=== PATIENT | female | born 1955 | race Caucasian/White ===

== ENCOUNTER 2019-01-18 16:07 | Emergency (ER) | payer OTHER ==
[~2019-01-18] VITALS: Ht 162.6 cm; Wt 52.2 kg
[2019-01-18 16:07] VITALS: BP 150/82
--- NOTE | 2019-01-18 16:10 | NUR ---
ED Nurse Note: Patient brought in by [id number] from [place] due to tripped and fell injury. patient reports she hit her head and sustained a laceraion on left side of head. patient denies taking any medication. patient reports 7/10 pain on the forehead. patient is alert awake x4 ambulatory. breathing unlabored and even
[2019-01-18] MEDS ORDERED: Tetanus/Diptheria/Pertussis IM ONE (16:30)
--- NOTE | 2019-01-18 16:30 | NUR ---
ED Nurse Note: patient taken to CT head
--- NOTE | 2019-01-18 16:59 | Diagnostic Imaging Report ---
Indications: Head pain, trip and fall, laceration to left side of head, 7 out of 10 pain on the forehead Technique: Spiral acquisitions obtained through the brain. Angled axial and coronal 5 x 5 mm slices were reconstructed. Total dose length product 1369.02 mGycm. CTDI vol(s) 70.38 mGy. Dose reduction achieved using automated exposure control Comparison: None. Findings: No acute intracranial hemorrhage or edema. No mass effect or midline shift. Normal jackson-white differentiation. Normal size ventricles and extra axial CSF spaces. Visualized orbits and sinuses are unremarkable. The mastoids are clear. Impression: Negative The CT scanner at [facility] is accredited by the [employer] and the scans are performed using protocols designed to limit radiation exposure to as low as reasonably achievable to attain images of sufficient resolution adequate for diagnostic evaluation.
--- NOTE | 2019-01-18 17:06 | NUR ---
ED Nurse Note: patient refused tdap shot. information sheet regarding TDAP was provided to the patient, patient reports reading the information sheet carefully, patient refused to take TDAP injection. Dr. Mcgregor notified.
--- NOTE | 2019-01-18 17:16 | Emergency Room Report ---
History of Present Illness General Chief Complaint: Multiple Trauma/Fall Source: Patient Present Illness HPI 63-year-old female, presents with left forehead laceration, after falling mechanical, patient tripped on the curb, no LOC, no neuro deficits, patient denies any preceding symptoms, no chest pain, no shortness of breath, no abdominal pain, patient presents with sharp achy pain of the forehead no aggravating or alleviating factors, severity is mild Allergies: Coded Allergies: No Known Allergies (Unverified , 01/18/19) Patient History Past Medical History: see triage record Reviewed Nursing Documentation: PMH: Agreed; PSxH: Agreed Nursing Documentation-PMH Past Medical History: No Stated History Review of Systems All Other Systems: negative except mentioned in HPI Physical Exam Vital Signs Date Time Temp Pulse Resp B/P (MAP) Pulse Ox O2 Delivery O2 Flow Rate FiO2 01/18/19 16:06 97.0 82 16 150/82 (104) 100 Room Air Sp02 EP Interpretation: reviewed, normal General Appearance: well appearing, no apparent distress, alert Head: normocephalic, other - Left forehead: 2 cm superficial laceration Eyes: bilateral eye PERRL, bilateral eye EOMI ENT: uvula midline, moist mucus membranes Neck: supple, thyroid normal, supple/symm/no masses Respiratory: lungs clear, no respiratory distress, no retraction, no accessory muscle use Cardiovascular #1: normal peripheral pulses, regular rate, rhythm, no edema, no gallop, no murmur Gastrointestinal: non tender, soft, no guarding, no rebound Musculoskeletal: normal inspection Neurologic: alert, oriented x3 Psychiatric: mood/affect normal Skin: no rash, warm/dry Procedures Laceration/Wound Repair Laceration/Wound Repair : Consent: Verbal Wound Location: head Wound's Depth, Shape: superficial Wound Length (cm): 2 Wound Explored: clean Irrigated w/ Saline (ccs): 100 Betadine Prep?: Yes Wound Debrided: None Wound Repaired With: Dermabond Medical Decision Making Diagnostic Impression: Primary Impression: Fall Additional Impression: Laceration of head ER Course 63-year-old female presents with laceration of the left forehead, after mechanical fall repaired with Dermabond, CT brain negative for acute processes, disposition home with return precautions Patient refused TDAP aware of risks and benefits CT/MRI/US Diagnostic Results CT/MRI/US Diagnostic Results : Impression Comparison: None. Findings: No acute intracranial hemorrhage or edema. No mass effect or midline shift. Normal jackson-white differentiation. Normal size ventricles and extra axial CSF spaces. Visualized orbits and sinuses are unremarkable. The mastoids are clear. Impression: Negative The CT scanner at [facility] is accredited by the [employer] and the scans are performed using protocols designed to limit radiation exposure to as low as reasonably achievable to attain images of sufficient resolution adequate for diagnostic evaluation. Dictated By: Vinh Tyler MD Electronically Signed By: Vinh Tyler MD Signed Date/Time 01/18/19 1654 Last Vital Signs Date Time Temp Pulse Resp B/P (MAP) Pulse Ox O2 Delivery O2 Flow Rate FiO2 01/18/19 16:37 82 16 Room Air 01/18/19 16:07 97.0 150/82 100 Disposition: HOME, SELF-CARE Condition: Stable Scripts Ibuprofen* (MOTRIN*) 600 Mg Tablet 600 MG ORAL Q8H PRN for For Pain, #30 TAB 0 Refills Prov: Koby Mcgregor MD 01/18/19 Referrals: [facility] Patient Instructions: Head Injury, Adult, [id number], Laceration Care, Adult , [id number] Additional Instructions: The patient was provided with discharge instructions, notified to follow-up with a primary care doctor and or specialist in the next 24-48 hours, and to return to the ED if they have worsening of their symptoms. Please note that this report is being documented using DRAGON technology. This can lead to erroneous entry secondary to incorrect interpretation by the dictating instrument. Koby Mcgregor MD Jan 18, 2019 17:16
[2019-01-18] MEDS ORDERED: IBUPROFEN600 MG ORAL (17:27)
[2019-01-18 17:30] VITALS: BP 150/82
--- NOTE | 2019-01-18 17:31 | NUR ---
ER DISCHARGE NOTE: Patient is cleared to be discharged per GILMER ALLEN pt is aox4, on room air, with stable vital signs. pt was given dc and prescription instructions, pt was able to verbalize understanding, pt id band removed without complications. pt is able to ambulate with steady gait. pt took all belongings. patient declined to put dressing on the forehead at this time, patient reports she does not want to mess up the dermabond.
== END 2019-01-18 17:30 | disposition home or self-care (01) ==
LOC: EDBD 16:07 → EMR 17:17
DX: S01.81XA Laceration without foreign body of other part of head, initial encounter (principal); W01.0XXA Fall on same level from slipping, tripping and stumbling without subsequent striking against object, initial encounter; Y92.9 Unspecified place or not applicable
CPT/HCPCS: 12011; 70450; 99284; Z7502; 90471; 90715